=== PATIENT | female | born 1995 | race Two or more races ===

== ENCOUNTER 2024-06-23 14:22 | Emergency (ER) | payer MEDICAID, SELFPAY ==
[2024-06-23 14:24] VITALS: BMI 31.1
[2024-06-23 14:43] VITALS: BP 112/71; PULSE 77; RESP 18; TEMP 36.9; O2SAT 99
--- NOTE | 2024-06-23 15:48 | EDNOTE_ITS ---
Upper Respiratory Inf. RME/HPI General Chief Complaint: Flu Like Symptoms Stated Complaint: SORE THROAT TODAY Time Seen by Provider: 06/23/24 14:24 Arrival date/time: 06/23/24 14:22 28-year-old female presents emergency department complaint of sore throat, body aches patient is here with 2 children who are also being seen as patients with similar symptoms Limitations: no limitations Related Data Previous Rx's ?Medication ?Instructions ?Recorded albuterol sulfate 90 mcg/actuation 2 puff inhalation QID PRN 11/08/18 aerosol inhaler (Proventil HFA) shortness of breath #18 grams ibuprofen 600 mg tablet 600 mg PO Q6H #30 tabs 06/23/24 Allergies Allergy/AdvReac Type Severity Reaction Status Date / Time No Known Allergies Allergy Verified 11/08/18 23:23 Review of Systems Review of Systems Systems Reviewed: All systems reviewed, normal except as documented Constitutional Constitutional: Reports system reviewed and no additional complaints, except as documented, Denies fever(s) and Denies headache(s) Eyes Eyes: Reports system reviewed and no additional complaints, except as documented and Denies blurry vision ENT Ears, Nose, Mouth, and Throat: Reports system reviewed and no additional complaints, except as documented, Denies headache(s), Reports nasal congestion, Reports nasal discharge, Reports sore throat and Denies throat swelling Cardiovascular Cardiovascular: Reports system reviewed and no additional complaints, except as documented, Denies chest pain and Denies dyspnea Respiratory Respiratory: Reports system reviewed and no additional complaints, except as documented, Denies chest congestion, Denies cough and Denies dyspnea Gastrointestinal Gastrointestinal: Reports system reviewed and no additional complaints, except as documented and Denies abdominal pain Integumentary/Breasts Skin/Breast: Reports system reviewed and no additional complaints, except as documented and Denies rash Neurologic Neurologic: Reports system reviewed and no additional complaints, except as documented, Reports as per HPI and Denies headache(s) Allergic/Immunologic Allergic/Immunologic: Denies throat swelling Past Medical History Past Medical History NEUROLOGIC: Negative Neurological Disorders CARDIAC: Negative Cardiac Disorders or Congestive Heart Failure RESPIRATORY: Negative Chronic Obstructive Pulmonary Disease (COPD) GENITOURINARY: Negative Renal Disease ENDOCRINE: Negative Diabetes Mellitus Type 1 or Diabetes Mellitus Type 2 Social History SMOKING STATUS: Never smoker ED Exam General Limitations: Present no limitations General appearance: Present alert and in no apparent distress Head Head exam: Present atraumatic, normocephalic and normal inspection Eye Eye exam: Present normal appearance, PERRL and EOMI; Absent conjunctival injection ENT ENT exam: Present normal exam, normal oropharynx and mucous membranes moist Neck Neck exam: Present normal inspection, full ROM and trachea midline Chest Chest inspection: Present normal inspection and symmetric chest wall rise Respiratory Respiratory exam: Present normal lung sounds bilaterally; Absent respiratory distress Cardiovascular Cardiovascular exam: Present regular rate, normal rhythm and normal heart sounds Abdominal Exam Abdominal exam: Present soft and normal bowel sounds; Absent distention, tenderness, guarding, rebound or rigidity Extremities Exam Extremities exam: Present normal inspection and full ROM Back Exam Back exam: Present normal inspection and full ROM Neurological Exam Neurological exam: Present alert, oriented X3, CN II-XII intact, normal gait and reflexes normal; Absent motor sensory deficit Psychiatric Psychiatric exam: Present normal affect and normal mood Skin Skin exam: Present warm, dry, intact and normal color Course Quality Measures none Orders Category Date Time Status Bedside COVID-19 Antigen Test NOW Care 06/23/24 14:53 Completed Bedside Influenza A&B Antigen Test NOW Care 06/23/24 14:53 Completed Vital Signs Vital signs: Vital Signs Temperature 98.5 F 06/23/24 14:43 Pulse Rate 77 06/23/24 14:43 Respiratory Rate 18 06/23/24 14:43 Blood Pressure 112/71 06/23/24 14:43 Pulse Oximetry (%) 99 06/23/24 14:43 Oxygen Delivery Method Room Air 06/23/24 14:43 o2 sat 99% r/a wnl Upper Respiratory Infection MDM Narrative MDM Narrative:: 28-year-old female presents emergency department complaint of sore throat, body aches patient is here with 2 children who are also being seen as patients with similar symptoms On exam patient well-appearing patient does not appear ill or toxic in no acute distress Patient's son who is here as a patient has positive for influenza Patient symptoms highly consistent with viral illness patient has no evidence of strep throat no tonsillar erythema no trismus no hoarseness of voice no exudate Patient discharged home in no distress to follow-up with primary care doctor in the next 24 to 48 hours and for any worsening symptoms to return to the ER immediately Patient data External records reviewed:: [facility] previous records Clinical information provided by:: patient Social determinants that could affect healthcare access:: none Patient has the following chronic illnesses:: None How is presenting disease/condition affected by chronic disease/condition?: no chronic disease (N/A) Evaluation data The following diagnostics were reviewed and interpreted by me:: other (specify) (n.a) Lab and/or radiology exams considered but not ordered:: N/A Interpretation Summary: N/A Medications / Prescriptions Medications or Prescriptions considered but not ordered:: Not given Medication administrations:: Not given Consultations Consultation(s) initiated? (list below): No Diagnosis Upper Respiratory Differential Diagnosis: upper respiratory infection, otitis media, viral infection and bronchitis Most likely diagnosis given after review of the tests above:: Viral illness exposure influenza Admission Indicated Admission indicated?: not indicated Admission Request Was there a request for admission?: No Disposition Plan Disposition Plan: Discharge Discharge Attestation Discharge Attestation: The patient and all family members were given an opportunity to ask questions and understood the discharge instructions. Discharge instructions specifically effects, indications for sooner follow up or return to the emergency department, and the expected course of current diagnosis. Patient condition: Stable Discharge Plan Plan Patient Disposition: HOME (Self Care) Disposition Comment: Stable Prescriptions/Referrals Prescriptions/Med Rec: New ibuprofen 600 mg tablet 600 mg PO Q6H Qty: 30 0RF No Action albuterol sulfate [Proventil HFA] 90 mcg/actuation HFA aerosol inhaler 2 puff INH QID PRN (Reason: shortness of breath) Qty: 18 0RF Referrals: Warren Herring MD [Primary Care Provider] - 06/25/24 Problem List Clinical Impression: Upper respiratory infection, Exposure to influenza Patient/Caregiver Discharge Instructions Education Materials: COVID-19 Home Care Additional Instructions: Please follow up with your primary care doctor in the next 24-48hrs for any worsening symptoms return here immediately Print Language: Burkinan Stand Alone Forms: Fara Award Info., Patient Portal Info Letter PA/PARCEL WRAPPER Supervising Physician PA/JAMI Supervising Physician: Dr. price
== END 2024-06-23 17:34 | disposition home or self-care (01) ==
PROVIDERS: Emergency Provider Emergency Medicine; PCP Family Medicine
DX: J06.9 Acute upper respiratory infection, unspecified (principal); Z20.828 Contact with and (suspected) exposure to other viral communicable diseases
CPT/HCPCS: 87400; 87811; 99283

== ENCOUNTER 2024-08-20 15:26 | Emergency (ER) | payer MEDICAID, SELFPAY ==
[2024-08-20 15:27] VITALS: BMI 31.3
[2024-08-20 15:50] VITALS: BP 126/81; PULSE 94; RESP 18; TEMP 36.9; O2SAT 98
--- NOTE | 2024-08-20 16:13 | EDNOTE_ITS ---
ED Skin Abcess FB-RME/HPI General Chief complaint: Skin/Abscess/Foreign Body Stated complaint: RASH x4 DAYS AFTER USING LOTION Time Seen by Provider: 08/20/24 16:00 Arrival date/time: 08/20/24 15:26 29-year-old female reports with complaints of a sore on the left lower lip that has been there for approximately 1 week. Patient says that the sore [place] and there is clear fluid dripping from it. Patient attributes the sores to outdated lotion she applied to her face. Patient also reports being sick 1 week prior with a stomach flu. She denies any fever or chills lesions inside of the mouth headache dizziness blurred vision ringing in ears nausea vomiting weakness fatigue. Patient states that she has been trying to put antifungal cream with no improvement of symptoms Limitations: no limitations Related Data Previous Rx's ?Medication ?Instructions ?Recorded albuterol sulfate 90 mcg/actuation 2 puff inhalation QID PRN 11/08/18 aerosol inhaler (Proventil HFA) shortness of breath #18 grams ibuprofen 600 mg tablet 600 mg PO Q6H #30 tabs 06/23/24 valacyclovir 1 gram tablet 2,000 mg (2 x 1 gram) PO Q12H 1 08/20/24 (Valtrex) day #4 tabs Allergies Allergy/AdvReac Type Severity Reaction Status Date / Time No Known Allergies Allergy Verified 08/20/24 15:28 Review of Systems Constitutional Constitutional: Denies chills, Denies fever(s) and Denies headache(s) ENT Ears, Nose, Mouth, and Throat: Denies dizziness, Denies headache(s), Denies throat swelling and Denies tongue swelling Integumentary/Breasts Skin/Breast: Reports rash and Reports skin pain Neurologic Neurologic: Denies dizziness and Denies headache(s) Allergic/Immunologic Allergic/Immunologic: Denies throat swelling and Denies tongue swelling Past Medical History Past Medical History NEUROLOGIC: Negative Neurological Disorders CARDIAC: Negative Cardiac Disorders or Congestive Heart Failure RESPIRATORY: Negative Chronic Obstructive Pulmonary Disease (COPD) GENITOURINARY: Negative Renal Disease ENDOCRINE: Negative Diabetes Mellitus Type 1 or Diabetes Mellitus Type 2 Social History SMOKING STATUS: Never smoker ED Exam General Limitations: Present no limitations General appearance: Present alert and in no apparent distress Head Head exam: Present atraumatic Eye Eye exam: Present normal appearance, PERRL and EOMI ENT ENT exam: Present normal oropharynx, mucous membranes moist and other (Posterior fascicular lesions noted left lower lip and chin scant clear discharge otherwise unremarkable); Absent normal exam Neck Neck exam: Present normal inspection, full ROM and trachea midline Neurological Exam Neurological exam: Present alert, oriented X3 and CN II-XII intact Psychiatric Psychiatric exam: Present normal affect and normal mood Skin Skin exam: Present warm, dry, intact and normal color Course Quality Measures none Vital Signs Vital signs: Vital Signs Temperature 98.4 F 08/20/24 15:50 Pulse Rate 94 08/20/24 15:50 Respiratory Rate 18 08/20/24 15:50 Blood Pressure 126/81 08/20/24 15:50 Pulse Oximetry (%) 98 08/20/24 15:50 Oxygen Delivery Method Room Air 08/20/24 15:50 Skin / Abscess / Foreign Body Patient data External records reviewed:: None Clinical information provided by:: patient Social determinants that could affect healthcare access:: none Patient has the following chronic illnesses:: none How is presenting disease/condition affected by chronic disease/condition?: no chronic disease Evaluation data The following diagnostics were reviewed and interpreted by me:: other (specify) Lab and/or radiology exams considered but not ordered:: none Interpretation Summary: n/a Medications / Prescriptions Medications or Prescriptions considered but not ordered:: none Medication administrations:: none Consultations Consultation(s) initiated? (list below): No Diagnosis Skin/Abscess Differential Diagnosis: abscess of skin or subcutaneous tissue, viral exanthem, insect bites and impetigo Most likely diagnosis given after review of the tests above:: Herpes simplex 1/cold sores Admission Indicated Admission indicated?: not indicated Admission Request Was there a request for admission?: No Disposition Plan Disposition Plan: Discharge Discharge Attestation Discharge Attestation: The patient and all family members were given an opportunity to ask questions and understood the discharge instructions. Discharge instructions specifically effects, indications for sooner follow up or return to the emergency department, and the expected course of current diagnosis. 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
== END 2024-08-20 17:06 | disposition home or self-care (01) ==
PROVIDERS: Emergency Provider Emergency Medicine; PCP Family Medicine
DX: B00.1 Herpesviral vesicular dermatitis (principal)
CPT/HCPCS: 99281

== ENCOUNTER 2024-10-06 14:41 | Emergency (ER) | payer MEDICAID, SELFPAY ==
[2024-10-06 14:43] VITALS: BMI 29.7
[2024-10-06 14:52] VITALS: BP 110/72; PULSE 78; RESP 16; TEMP 36.8; O2SAT 96
--- NOTE | 2024-10-06 15:00 | EDNOTE_ITS ---
<Statement entered by Rosette Ross MD - 10/08/24 12:05> As co-signing physician, I was present and available for consult prn. I concur with the plan and care as documented by the midlevel provider. ED Skin Abcess FB-RME/HPI General Chief complaint: Skin/Abscess/Foreign Body Stated complaint: Face Rash by chin is not going away Time Seen by Provider: 10/06/24 14:46 Arrival date/time: 10/06/24 14:41 29-year-old female presents emergency department today complains of a rash/skin irritation below her lower lip ongoing since July intermittently patient reports he is taking valacyclovir as well as mupirocin as well as doxycycline. Patient also reports been exposed to mold patient requesting lab work Limitations: no limitations Related Data Previous Rx's ?Medication ?Instructions ?Recorded albuterol sulfate 90 mcg/actuation 2 puff inhalation Q ID PRN 11/08/18 aerosol inhaler (Proventil HFA) shortness of breath #1 8 grams ibuprofen 600 mg tablet 600 mg PO Q6H #30 tabs 06/23 clindamycin HCl 300 mg capsule 300 mg PO TID 7 days #2 1 caps 10/06/24 ondansetron 4 mg disintegrating 4 mg PO Q8H PRN nausea and 10/06/24 tablet vomiting #10 tabs Allergies Allergy/AdvReac Type Severity Reaction Status Date / Time No Known Allergies Allergy Verified 08/20/24 15:28 Review of Systems Review of Systems Systems Reviewed: All systems reviewed, normal except as documented Constitutional Constitutional: Reports system reviewed and no additional complaints, except as documented, Denies fever(s) and Denies headache(s) Eyes Eyes: Reports system reviewed and no additional complaints, except as documented and Denies blurry vision ENT Ears, Nose, Mouth, and Throat: Reports system reviewed and no additional complaints, except as documented, Denies headache(s), Denies nasal congestion and Denies nasal discharge Cardiovascular Cardiovascular: Reports system reviewed and no additional complaints, except as documented, Denies chest pain and Denies dyspnea Respiratory Respiratory: Reports system reviewed and no additional complaints, except as documented, Denies chest congestion, Denies cough and Denies dyspnea Gastrointestinal Gastrointestinal: Reports system reviewed and no additional complaints, except as documented and Denies abdominal pain Integumentary/Breasts Skin/Breast: Reports system reviewed and no additional complaints, except as documented, Reports pruritus and Reports rash (Skin irritation) Neurologic Neurologic: Reports system reviewed and no additional complaints, except as documented, Reports as per HPI and Denies headache(s) Past Medical History Past Medical History NEUROLOGIC: Negative Neurological Disorders CARDIAC: Negative Cardiac Disorders or Congestive Heart Failure RESPIRATORY: Negative Chronic Obstructive Pulmonary Disease (COPD) GENITOURINARY: Negative Renal Disease ENDOCRINE: Negative Diabetes Mellitus Type 1 or Diabetes Mellitus Type 2 Social History SMOKING STATUS: Never smoker ED Exam General Limitations: Present no limitations General appearance: Present alert and in no apparent distress Head Head exam: Present atraumatic Eye Eye exam: Present normal appearance, PERRL and EOMI ENT ENT exam: Present normal exam, normal oropharynx and mucous membranes moist Neck Neck exam: Present normal inspection, full ROM and trachea midline Chest Chest inspection: Present normal inspection and symmetric chest wall rise Respiratory Respiratory exam: Present normal lung sounds bilaterally Cardiovascular Cardiovascular exam: Present regular rate, normal rhythm and normal heart sounds Abdominal Exam Abdominal exam: Present soft and normal bowel sounds Extremities Exam Extremities exam: Present normal inspection and full ROM Back Exam Back exam: Present normal inspection and full ROM Neurological Exam Neurological exam: Present alert, oriented X3 and CN II-XII intact Psychiatric Psychiatric exam: Present normal affect and normal mood Skin Skin exam: Present warm, dry and rash (Rash, itching below lower lip) Course Quality Measures none Orders Category Date Time Status BMP [Basic Metabolic Panel] Stat Lab 10/06/24 15:32 Completed CBC Stat Lab 10/06/24 15:32 Completed HCG,Qualitative Serum Stat Lab 10/06/24 15:32 Completed Vital Signs Vital signs: Vital Signs Temperature 98.3 F 10/06/24 14:52 Pulse Rate 78 10/06/24 14:52 Respiratory Rate 16 10/06/24 14:52 Blood Pressure 110/72 10/06/24 14:52 Pulse Oximetry (%) 96 10/06/24 14:52 Oxygen Delivery Method Room Air 10/06/24 14:52 O2 saturation 96% room air with normal limits Skin / Abscess / Foreign Body MDM Narrative MDM Narrative:: 29-year-old female presents emergency department today complains of a rash/skin irritation below her lower lip ongoing since July intermittently patient reports he is taking valacyclovir as well as mupirocin as well as doxycycline. Patient also reports been exposed to mold patient requesting lab work On exam patient well-appearing patient does not appear ill or toxic patient does not appear in any acute distress Lab work obtained unremarkable Patient given prescription for antibiotics patient reports she has a follow-up appoint with dermatology Patient discharged home in no distress to follow-up with primary care doctor in the next 24 to 48 hours and for any worsening symptoms to return to the ER immediately Patient data External records reviewed:: [facility] previous records Clinical information provided by:: patient Social determinants that could affect healthcare access:: none Patient has the following chronic illnesses:: None How is presenting disease/condition affected by chronic disease/condition?: no chronic disease Evaluation data The following diagnostics were reviewed and interpreted by me:: lab results Lab and/or radiology exams considered but not ordered:: Lab obtain Interpretation Summary: Reviewed by me Medications / Prescriptions Medications or Prescriptions considered but not ordered:: Rx given Medication administrations:: Rx given Consultations Consultation(s) initiated? (list below): No Diagnosis Skin/Abscess Differential Diagnosis: abscess of skin or subcutaneous tissue and cellulitis Most likely diagnosis given after review of the tests above:: Skin irritation Admission Indicated Admission indicated?: not indicated Admission Request Was there a request for admission?: No Disposition Plan Disposition Plan: Discharge Discharge Attestation Discharge Attestation: The patient and all family members were given an opportunity to ask questions and understood the discharge instructions. Discharge instructions specifically effects, indications for sooner follow up or return to the emergency department, and the expected course of current diagnosis. Patient condition: Stable Discharge Plan Plan Patient Disposition: HOME (Self Care) Disposition Comment: Stable Prescriptions/Referrals Prescriptions/Med Rec: New clindamycin HCl 300 mg capsule 300 mg PO TID 7 Days Qty: 21 0RF ondansetron 4 mg tablet,disintegrating 4 mg PO Q8H PRN (Reason: nausea and vomiting) Qty: 10 0RF No Action albuterol sulfate [Proventil HFA] 90 mcg/actuation HFA aerosol inhaler 2 puff INH QID PRN (Reason: shortness of breath) Qty: 18 0RF ibuprofen 600 mg tablet 600 mg PO Q6H Qty: 30 0RF Problem List Clinical Impression: Rash, skin Patient/Caregiver Discharge Instructions Additional Instructions: Please follow-up with adhesive bandage making operator as discussed for worsening symptoms return immediately Print Language: Bulgarian Stand Alone Forms: Fara Award Info., Patient Portal Info Letter PA/BUILDING APPRAISER Supervising Physician PA/BUILDING APPRAISER Supervising Physician: Dr. ROSS
[2024-10-06 16:00] LABS: Basophils % (Auto) 1 % (0-2.5); Eosinophils # (Auto) 0.1 Thou/mm3 (0.0-0.5); Eosinophils % (Auto) 1 % (0-10); Hematocrit 41.8 % (36.0-46.0); Hemoglobin 14.1 g/dL (12.0-16.0); Immature Granulocytes % (Auto) 0 % (0-0); Immature Granulocytes Auto 0.01 Thou/mm3 (0.00-0.00); Lymphocytes % (Auto) 20 % (10-50); Mean Corpuscular HGB Conc 33.7 g/dl (31.0-37.0); Mean Corpuscular Hemoglobin 30.2 pg (25.0-35.0); Mean Corpuscular Volume 90 fL (80-100); Monocytes # (Auto) 0.3 Thou/mm3 (0.0-0.8); Monocytes % (Auto) 6 % (0-12); Neutrophils # (Auto) 3.6 Thou/mm3 (1.8-7.7); Neutrophils % (Auto) 72 % (37-80); Nucleated Red Blood Cell % 0 /100 WBC (0); Platelet Count 147 Thou/mm3 (140-440); RDW Standard Deviation 40.9 fL (36.4-46.3); Red Blood Count 4.67 Miln/mm3 (4.00-5.20)
[2024-10-06 16:12] LABS: Anion Gap 5 (7-16); BUN/Creatinine Ratio 14 Ratio (12-20); Blood Urea Nitrogen 13 mg/dL (9-23); Calcium 9.4 mg/dL (8.3-10.6); Carbon Dioxide 29.9 mMol/L (20.0-31.0); Chloride 107 mMol/L (98-107); Creatinine (Component) 0.9 mg/dL (0.6-1.3); Estimated Creatinine Clearance 102.1 mL/min (>60); Glucose 89 mg/dL (74-106); Osmolality,Calculated 282 (275-295); Potassium 4.3 mMol/L (3.4-5.1); Sodium 142 mMol/L (136-145); eGFR > 60 See Note
[2024-10-06 16:13] LABS: HCG,Qualitative Serum Negative
== END 2024-10-06 16:47 | disposition home or self-care (01) ==
LOC: SERX 16:04
PROVIDERS: Nurse Practitioner Primary Care; Emergency Provider Emergency Medicine; PCP Family Medicine
DX: R21 Rash and other nonspecific skin eruption (principal)
CPT/HCPCS: 36415; 80048; 84703; 85025; 99283